=== PATIENT | female | born 2000 | race Caucasian/White ===

== ENCOUNTER 2024-01-26 08:53 | Inpatient (IN) | payer BC ==
[~2024-01-26 08:53] MED LIST: Bupivacaine/Epinephrine 0.25% 30 ML VIAL ONE
[2024-01-26] MEDS ORDERED: Ibuprofen 800 MG TAB PO PRN (09:42)
[2024-01-26] MEDS ORDERED: Tranexamic Acid 1,000 MG/10 ML VIAL IVP PRN (09:42)
[2024-01-26] MEDS ORDERED: Lidocaine 1% (PF) 30 ML VIAL SC PRN (09:42)
[2024-01-26] MEDS ORDERED: Methylergonovine 0.2 MG/ML VIAL IM PRN (09:42)
[2024-01-26] MEDS ORDERED: Ondansetron PF 4 MG/2 ML Vial IVP PRN ×2 (09:42→16:02)
[2024-01-26] MEDS ORDERED: Promethazine HCl 25 MG/ML VIAL IM PRN ×2 (09:42→16:02)
[2024-01-26] MEDS ORDERED: hydrALAZINE 20 MG/ML VIAL SLOW IVP PRN ×2 (09:42→21:37)
[2024-01-26] MEDS ORDERED: Carboprost 250 MCG/ML AMP IM PRN (09:42)
[2024-01-26] MEDS ORDERED: Oxytocin 30 units/NS 500 ML 500 ML IV SCH ×3 (09:45→22:00)
[2024-01-26 10:22] LABS: Hematocrit 34.1 % (34.9-44.5); Hemoglobin 11.6 g/dL (12.0-15.5); Mean Corpuscular Hemoglobin 26.4 pg (27.0-33.0); Mean Corpuscular Volume 77.5 fL (81.6-98.3); Platelet Count 219 10x3/uL (150-450); RBC Distribution Width 13.2 % (11.5-14.5)
[2024-01-26 10:56] LABS: Syphilis Antibody Nonreactive (Nonreactive); Syphilis Antibody Index 0.04 S/CO (<1.00 Non-Reactive)
[2024-01-26 10:58] LABS: HBsAg Index 0.16 S/CO (0-0.99); Hep B Surf Ag - L&D Non-Reactive S/CO (NonReactive)
[2024-01-26] MEDS: fentaNYL 50 mcg/mL 1 mL Vial SLOW IVP SCH (14:05)
[2024-01-26] MEDS: fentaNYL/Ropivacaine Epidural 100 ML ONE (15:59)
[2024-01-26] MEDS ORDERED: Naloxone HCl 0.4 mg/ml Vial IVP PRN ×2 (16:02)
[2024-01-26] MEDS ORDERED: Lactated Ringer's 500 ML IV PRN (16:02)
[2024-01-26] MEDS ORDERED: Moisturizing Cream (Eucerin) 113 GM JAR TOP PRN (16:02)
[2024-01-26] MEDS ORDERED: ePHEDrine Sulfate 50 MG/10 ML VIAL SLOW IVP PRN (16:02)
[2024-01-26] MEDS ORDERED: diphenhydrAMINE 50 MG/ML VIAL IVP PRN (16:02)
[2024-01-26] MEDS ORDERED: Acetaminophen 325 MG TAB PO PRN (16:02)
[2024-01-26] MEDS ORDERED: Communication Order-Pharmacy FS SCH (16:15)
[2024-01-26] MEDS ORDERED: fentaNYL 2 mcg/Ropivacaine 0.2% Epidural 100 ML CADD EPIDURAL SCH (16:15)
[2024-01-26] MEDS: Lactated Ringer's 1,000 ML IV SCH (17:19)
[2024-01-26] MEDS: Misoprostol 200 MCG TAB PR PRN (18:45)
[2024-01-26] MEDS ORDERED: HYDROcodone/Acetaminophen 5/325 mg Tablet PO PRN ×2 (21:37)
[2024-01-26] MEDS ORDERED: Bisacodyl 10 MG SUPP PR PRN (21:37)
[2024-01-26] MEDS ORDERED: Misoprostol 200 MCG TAB VAG PRN (21:37)
[2024-01-26] MEDS ORDERED: Milk Of Magnesia 30 ML UDCUP PO PRN (21:37)
[2024-01-26] MEDS: Benzocaine-Menthol 82.5 ML CAN TOP PRN (21:58)
[2024-01-26] MEDS: Ibuprofen 800 MG TAB PO SCH (21:58)
[2024-01-26] MEDS: Docusate 100 MG CAP PO SCH (21:58)
[2024-01-27] MEDS: Prenatal Vitamin 1 TAB PO SCH (08:42)
[2024-01-27] MEDS: Docusate 100 MG CAP PO SCH (08:42)
[2024-01-27] MEDS: Ferrous Sulfate 325 MG TAB PO SCH (08:43)
[2024-01-27] MEDS ORDERED: Witch Hazel 100 PAD JAR TOP PRN (10:52)
[2024-01-27] MEDS: fentaNYL 50 mcg/mL 1 mL Vial ONE (20:59)
[2024-01-28] MEDS: Boostrix 0.5 ML (Tdap) VIAL (>/=7 yrs of age) IM ONE (02:51)
[2024-01-28 07:34] VITALS: BP 101/55; TEMP 97.7
== END 2024-01-28 19:30 | disposition home or self-care (01) | DRG 806 ==
LOC: CSHLD/OP 08:53 → CSHLD 13:10 → CSHPED 21:00
PROVIDERS: ADMIT Obstetrics & Gynecology; ATTEND Obstetrics & Gynecology
PROC: 10E0XZZ Delivery of Products of Conception, External Approach (ICD-10-PCS; principal; 2024-01-26)
PROC: 0UQGXZZ Repair Vagina, External Approach (ICD-10-PCS; 2024-01-26)
DX: O42.02 Full-term premature rupture of membranes, onset of labor within 24 hours of rupture (principal); O71.4 Obstetric high vaginal laceration alone; Z37.0 Single live birth; O98.32 Other infections with a predominantly sexual mode of transmission complicating childbirth; Z3A.40 40 weeks gestation of pregnancy; O69.81X0 Labor and delivery complicated by cord around neck, without compression, not applicable or unspecified
CPT/HCPCS: 36415; 51702; 85027; 86780; 86850; 86900; 86901; 87340; 99282; 99285; J3010; J7120

== ENCOUNTER 2025-03-29 06:18 | Inpatient (IN) | payer BC ==
[2025-03-29 06:51] VITALS: BMI 25.9
[2025-03-29] MEDS ORDERED: Carboprost 250 MCG/ML AMP IM PRN (07:33)
[2025-03-29] MEDS ORDERED: Famotidine/PF 20 mg/2ml Vial SLOW IVP PRN (07:33)
[2025-03-29] MEDS ORDERED: Diphenoxylate HCl/Atropine Tablet PO PRN (07:33)
[2025-03-29] MEDS ORDERED: Ondansetron PF 4 MG/2 ML Vial IVP PRN ×3 (07:33→11:41)
[2025-03-29] MEDS ORDERED: Tranexamic Acid 1,000 MG/10 ML VIAL IVP PRN (07:33)
[2025-03-29] MEDS ORDERED: Bicitra 30 ML UDCUP PO PRN (07:33)
[2025-03-29] MEDS ORDERED: hydrALAZINE 20 MG/ML VIAL SLOW IVP PRN ×2 (07:33→11:41)
[2025-03-29] MEDS ORDERED: Methylergonovine 0.2 MG/ML VIAL IM PRN ×2 (07:33→11:41)
[2025-03-29] MEDS ORDERED: Oxytocin 30 units/NS 500 ML 500 ML IV SCH ×2 (07:45→11:41)
[2025-03-29] MEDS ORDERED: Azithromycin 500 MG in Sodium Chloride 0.9% 250 ML 250 ML IVPB SCH (07:45)
[2025-03-29 07:47] LABS: Hematocrit 37.6 % (34.9-44.5); Hemoglobin 12.6 g/dL (12.0-15.5); Mean Corpuscular Hemoglobin 27.1 pg (27.0-33.0); Mean Corpuscular Volume 80.9 fL (81.6-98.3); Platelet Count 170 10x3/uL (150-450); Red Blood Cell (RBC) Count 4.65 10x6/uL (3.90-5.03); White Blood Cell (WBC) Count 5.41 10x3/uL (3.5-10.5)
[2025-03-29 08:17] LABS: Syphilis Antibody Index 0.08 S/CO (<1.00 Non-Reactive)
[2025-03-29 08:19] LABS: HIV (1/2) Antibody/Antigen Non-Reactive (NonReactive); HIV 1/2 INDEX 0.07 S/CO (<1.00); Hep B Surf Ag - L&D Non-Reactive S/CO (NonReactive)
[2025-03-29] MEDS ORDERED: Meperidine HCl/PF 25 MG (1 mL) VIAL SLOW IVP PRN (08:57)
[2025-03-29] MEDS ORDERED: diphenhydrAMINE 50 MG/ML VIAL IVP PRN (08:57)
[2025-03-29] MEDS ORDERED: Communication Order-Pharmacy FS SCH (09:00)
[2025-03-29] MEDS ORDERED: Ketorolac Tromethamine 30 MG (1 mL) VIAL IVP SCH (09:00)
[2025-03-29] MEDS: Dexamethasone 10 MG/ML VIAL ONE (09:31)
[2025-03-29] MEDS: CEFAZOLIN 2 GM VIAL ONE (09:31)
[2025-03-29] MEDS: Oxytocin 10 UNITS/ML VIAL ONE (09:31)
[2025-03-29] MEDS ORDERED: Bisacodyl 10 MG SUPP PR PRN (11:41)
[2025-03-29] MEDS ORDERED: Lanolin Ointment 7 GM TUBE TOP PRN (11:41)
[2025-03-29] MEDS: Ketorolac Tromethamine 30 MG (1 mL) VIAL IVP PRN (12:07)
[2025-03-29] MEDS: Ondansetron PF 4 MG/2 ML Vial IVP PRN (12:07)
[2025-03-29] MEDS: Ferrous Sulfate 325 MG TAB PO SCH ×2 (12:10→19:27)
[2025-03-30 05:45] LABS: Platelet Count 132 10x3/uL (150-450)
[2025-03-30 05:46] LABS: Hematocrit 28.0 % (34.9-44.5); Hemoglobin 9.5 g/dL (12.0-15.5); Mean Corpuscular Hemoglobin 27.5 pg (27.0-33.0); Mean Corpuscular Volume 81.2 fL (81.6-98.3); Red Blood Cell (RBC) Count 3.45 10x6/uL (3.90-5.03); White Blood Cell (WBC) Count 7.48 10x3/uL (3.5-10.5)
[2025-03-30] MEDS: Simethicone Chewable 80 MG TAB PO PRN (09:12)
[2025-03-30 10:49] LABS: ALT (SGPT) 13 U/L (Less than 34); AST (SGOT) 22 U/L (11-34); Albumin 2.3 g/dL (3.1-4.5); Alkaline Phosphatase 92 U/L (40-110); Anion Gap 8 mmol/L (10-20); BUN (Urea Nitrogen) 8 mg/dL (7.0-18.7); Bilirubin, Total 0.2 mg/dL (0.3-1.2); Calc. Creatinine Clearance 140 mL/min (70-130); Calcium 7.8 mg/dL (7.8-10.44); Carbon Dioxide 26 mmol/L (22-29); Chloride 107 mmol/L (98-107); Globulin 3.0 g/dL (2.4-3.5); Glucose 84 mg/dL (70-105); Potassium 3.9 mmol/L (3.5-5.1); Sodium 137 mmol/L (136-145)
[2025-03-30 10:55] LABS: Troponin I Less than 0.010 ng/mL (< 0.028)
[2025-03-30] MEDS: Acetaminophen 325 MG TAB PO PRN (14:11)
[2025-03-30] MEDS: Ibuprofen 800 MG TAB PO SCH (14:59)
[2025-03-31] MEDS: diphenhydrAMINE 25 MG CAP PO PRN (00:27)
[2025-03-31 20:00] VITALS: TEMP 97.8
[2025-04-01 09:42] VITALS: BP 113/68
== END 2025-04-01 14:30 | disposition home or self-care (01) | DRG 787 ==
LOC: CSHLD/OP 06:18 → CSHLD 07:09 → CSHPP 11:35
PROVIDERS: ADMIT Obstetrics & Gynecology; ATTEND Obstetrics & Gynecology
PROC: 10D00Z1 Extraction of Products of Conception, Low, Open Approach (ICD-10-PCS; principal; 2025-03-29)
PROC: 3E03329 Introduction of Other Anti-infective into Peripheral Vein, Percutaneous Approach (ICD-10-PCS; 2025-03-29)
PROC: 3E0234Z Introduction of Serum, Toxoid and Vaccine into Muscle, Percutaneous Approach (ICD-10-PCS; 2025-03-29)
DX: O98.52 Other viral diseases complicating childbirth (principal); D62 Acute posthemorrhagic anemia; Z37.0 Single live birth; Z3A.39 39 weeks gestation of pregnancy; O90.81 Anemia of the puerperium; Z79.899 Other long term (current) drug therapy
CPT/HCPCS: 36415; 51702; 80053; 84484; 85027; 86780; 86850; 86900; 86901; 87340; 87389; 93005; 93010; 99285; J1100; J1885; J2274; J2405; J2590